=== PATIENT | male | born 1960 ===

== ENCOUNTER 2021-03-27 05:45 | Day surgery (SDC) | payer OTHER ==
[2021-03-27] MEDS ORDERED: NEURONTIN600 M1 PO (09:53)
[2021-03-27] MEDS ORDERED: PERCOCET 5-3251 EACH PO (09:53)
[2021-03-27] MEDS ORDERED: POLY119PG PO (09:53)
== END 2021-03-27 11:05 | disposition home or self-care (01) ==
LOC: CIR.AMB 05:45
PROVIDERS: ATTEND Surgery
DX: K40.90 Unilateral inguinal hernia, without obstruction or gangrene, not specified as recurrent (principal)